=== PATIENT | female | born 1960 | race Caucasian/White ===

== ENCOUNTER 2018-05-02 21:14 | Outpatient (REF) | payer MEDICAID, SELFPAY ==
--- NOTE | 2018-05-02 15:00 | PAPFT_PTH ---
PATIENT: NADIRA NAVARRO LOC: [facility] U#:[id number] AGE/SX: 58/F ROOM: RE05/02/[address]: Kizzy Sanchez : 1960 BED: DIS: 05/02/2018 SPEC #: [id number] RECD: 05/05/18 12:41 STATUS: GENO REQ #: [id number] FRANCISCO: 05/02/18 15:[address]: Kizzy Sanchez DEPT: [facility] Cytology RECD BY: Joann Araiza ENTERED: 05/05/18 12:41 SP TYPE: PAPFT OTHR DR: Korey Hawkins Tissues: 1 - CX/ENDOCX FOR PAP SMEARS Procedures: PAP THIN PREP/[facility] Screening HPV DNA PROBE Comments: [id number]
[2018-05-02 22:44] LABS: TSH (W/Ref FT4) 2.07 uIU/mL (0.358-3.74)
[2018-05-02 23:01] LABS: Hemoglobin A1C 5.5 % (4.5-6.2)
[2018-05-05 09:33] LABS: Hepatitis C Ab w Rflx HCV PCR Negative (NEGAT)
== END 2018-05-02 21:34 ==
LOC: NCHCN 21:14
PROVIDERS: Visit Provider Family Medicine
DX: I10 Essential (primary) hypertension (principal); E03.9 Hypothyroidism, unspecified; R73.02 Impaired glucose tolerance (oral); Z12.4 Encounter for screening for malignant neoplasm of cervix; Z11.51 Encounter for screening for human papillomavirus (HPV)
CPT/HCPCS: 86803; 88142; 83036; 84443; 87624

== ENCOUNTER 2018-09-23 11:51 | Outpatient (REF) | payer MEDICAID, SELFPAY ==
[2018-09-23 21:49] LABS: Anion Gap 7.2 mmol/L (3-11); BUN 5 mg/dL (7-18); CO2 29.8 mmol/L (21.0-32.0); CREATININE 0.71 mg/dL (0.55-1.02); Calcium 7.6 mg/dL (8.5-10.1); Chloride 107 mmol/L (98-107); Glucose 98 mg/dL (70-100); Potassium 3.6 mmol/L (3.5-5.1); Sodium 144 mmol/L (136-145)
[2018-09-23 22:36] LABS: PROTEIN 10.9 mg/dL
[2018-09-23 23:06] LABS: COMMENT (LAB VIEW ONLY) 73.41 mg/dL; Prot/Crea Ur Ratio 0.14
== END 2018-09-23 12:11 ==
LOC: NCHCN 11:51
PROVIDERS: Visit Provider Family Medicine
DX: I10 Essential (primary) hypertension (principal); R60.0 Localized edema
CPT/HCPCS: 80048; 82565; 84156

== ENCOUNTER 2018-12-22 15:03 | Outpatient (REF) | payer MEDICAID, SELFPAY | END 2018-12-22 15:23 | LOC: NCHCN 15:03 | PROVIDERS: Visit Provider Family Medicine | DX: R60.9 Edema, unspecified (principal) | CPT/HCPCS: 80048 ==

== ENCOUNTER 2018-12-24 15:10 | Outpatient (REF) | payer MEDICAID, SELFPAY ==
[2018-12-24 22:42] LABS: Anion Gap 8.5 mmol/L (3-11); BUN 8 mg/dL (7-18); CO2 28.5 mmol/L (21.0-32.0); CREATININE 0.84 mg/dL (0.55-1.02); Calcium 8.3 mg/dL (8.5-10.1); Chloride 105 mmol/L (98-107); Glucose 83 mg/dL (70-100); Potassium 3.7 mmol/L (3.5-5.1); Sodium 142 mmol/L (136-145)
== END 2018-12-24 15:30 ==
LOC: NCHCN 15:10
PROVIDERS: Visit Provider Family Medicine
DX: R60.9 Edema, unspecified (principal)
CPT/HCPCS: 80048

== ENCOUNTER 2018-12-30 11:07 | Outpatient (REF) | payer MEDICAID, SELFPAY ==
[2018-12-30 23:04] LABS: COMMENT (LAB VIEW ONLY) 386.79 mg/dL; Microalb ug/mg Crea 3.5 ug/mg Cr
== END 2018-12-30 11:27 ==
LOC: NCHCN 11:07
PROVIDERS: Visit Provider Family Medicine
DX: I10 Essential (primary) hypertension (principal); R73.03 Prediabetes; K70.30 Alcoholic cirrhosis of liver without ascites; Z00.00 Encounter for general adult medical examination without abnormal findings
CPT/HCPCS: 82043; 82570

== ENCOUNTER 2019-01-06 15:29 | Outpatient (REF) | payer MEDICAID, SELFPAY ==
[2019-01-06 22:04] LABS: INR 1.8 (0.9-1.1); Prothrombin Time 18.4 sec (9.3-11.0)
[2019-01-06 23:05] LABS: Anion Gap 10.7 mmol/L (3-11); BUN 11 mg/dL (7-18); CO2 29.3 mmol/L (21.0-32.0); CREATININE 1.13 mg/dL (0.55-1.02); Calcium 8.1 mg/dL (8.5-10.1); Chloride 105 mmol/L (98-107); Estimated GFR 49.81 (mL/min/1.73m2); Glucose 95 mg/dL (70-100); Potassium 4.1 mmol/L (3.5-5.1); Sodium 145 mmol/L (136-145)
== END 2019-01-06 15:49 ==
LOC: NCHCN 15:29
PROVIDERS: Visit Provider Family Medicine
DX: K70.30 Alcoholic cirrhosis of liver without ascites (principal); R60.9 Edema, unspecified
CPT/HCPCS: 80048; 85610

== ENCOUNTER 2019-05-21 15:10 | Outpatient (CLI) | payer MEDICAID, SELFPAY ==
[2019-05-21 16:04] LABS: Ammonia 80 umol/L (11-32)
[2019-05-21 16:31] LABS: ALT 54 U/L (14-59); AST 104 U/L (15-37); Albumin 2.3 g/dL (3.4-5.0); Alkaline Phosphatase 139 U/L (46-116); Anion Gap 8.4 mmol/L (3-11); BUN 24 mg/dL (7-18); Bilirubin, Total 7.4 mg/dL (0.2-1.0); CO2 24.6 mmol/L (21.0-32.0); CREATININE 1.35 mg/dL (0.55-1.02); Calcium 9.3 mg/dL (8.5-10.1); Chloride 101 mmol/L (98-107); Estimated GFR 40.42 (mL/min/1.73m2); Glucose 116 mg/dL (74-106); Potassium 5.3 mmol/L (3.5-5.1); Sodium 134 mmol/L (136-145); TSH 0.61 uIU/mL (0.36-3.74); Total Protein 6.5 g/dL (6.4-8.2)
== END 2019-05-21 15:30 ==
PROVIDERS: Visit Provider Family Medicine
DX: K72.91 Hepatic failure, unspecified with coma (principal); E03.9 Hypothyroidism, unspecified
CPT/HCPCS: 36415; 80053; 82140; 84443

== ENCOUNTER 2019-06-26 14:30 | Outpatient (REF) | payer MEDICAID, SELFPAY ==
[2019-06-26 20:44] LABS: HCT 34.7 % (36.0-46.0); HGB 11.7 g/dL (12.0-15.5); Mean Corp. HGB Concentration 33.7 g/dL (32.0-36.0); Mean Corpuscular Hemoglobin 33.3 pg (27.0-33.0); Mean Corpuscular Volume 98.9 fL (80-95); Mean Platelet Volume 11.6 fL (8.0-11.0); Platelet Count 121 x1000/uL (130-400); RBC 3.51 m/cumm (4.00-5.20); RBC Distribution Width 16.7 % (11.7-14.6); White Blood Cell Count 5.44 k/cumm (4.4-10.8)
[2019-06-26 20:52] LABS: ALT 31 U/L (14-59); AST 58 U/L (15-37); Alkaline Phosphatase 140 U/L (46-116); Anion Gap 3.6 mmol/L (3-11); BUN 14 mg/dL (7-18); Bilirubin, Direct 2.84 mg/dL (0.00-0.20); Bilirubin, Total 4.5 mg/dL (0.2-1.0); CO2 30.4 mmol/L (21.0-32.0); CREATININE 0.82 mg/dL (0.55-1.02); Calcium 8.1 mg/dL (8.5-10.1); Chloride 105 mmol/L (98-107); Glucose 116 mg/dL (74-106); Potassium 5.3 mmol/L (3.5-5.1); Sodium 139 mmol/L (136-145); Total Protein 5.5 g/dL (6.4-8.2)
== END 2019-06-26 14:50 ==
LOC: NCHCN 14:30
PROVIDERS: Visit Provider Family Medicine
DX: R63.4 Abnormal weight loss (principal); K31.89 Other diseases of stomach and duodenum; K70.31 Alcoholic cirrhosis of liver with ascites; K72.91 Hepatic failure, unspecified with coma; R60.9 Edema, unspecified
CPT/HCPCS: 80053; 80076; 85027

== ENCOUNTER 2019-07-15 18:55 | Outpatient (REF) | payer MEDICAID, SELFPAY ==
[2019-07-15 21:48] LABS: Anion Gap 3.7 mmol/L (3-11); BUN 14 mg/dL (7-18); CO2 32.3 mmol/L (21.0-32.0); CREATININE 1.04 mg/dL (0.55-1.02); Chloride 102 mmol/L (98-107); Estimated GFR 54.62 (mL/min/1.73m2); Glucose 105 mg/dL (74-106); Potassium 4.3 mmol/L (3.5-5.1); Sodium 138 mmol/L (136-145)
== END 2019-07-15 19:15 ==
LOC: NCHCN 18:55
PROVIDERS: Visit Provider Family Medicine
DX: E87.5 Hyperkalemia (principal)
CPT/HCPCS: 80048

== ENCOUNTER 2019-07-31 22:38 | Outpatient (REF) | payer MEDICAID, SELFPAY ==
[2019-07-31 21:41] LABS: Anion Gap 6.4 mmol/L (3-11); BUN 10 mg/dL (7-18); CO2 27.6 mmol/L (21.0-32.0); CREATININE 0.88 mg/dL (0.55-1.02); Calcium 8.1 mg/dL (8.5-10.1); Chloride 94 mmol/L (98-107); Glucose 97 mg/dL (74-106); Potassium 4.8 mmol/L (3.5-5.1); Sodium 128 mmol/L (136-145)
== END 2019-07-31 22:58 ==
LOC: NCHCN 22:38
PROVIDERS: Visit Provider Family Medicine
DX: E87.5 Hyperkalemia (principal); R73.03 Prediabetes; K70.31 Alcoholic cirrhosis of liver with ascites
CPT/HCPCS: 80048

== ENCOUNTER 2019-08-05 16:53 | Outpatient (REF) | payer MEDICAID, SELFPAY ==
[2019-08-05 22:39] LABS: PROTEIN < 6.0 mg/dL
[2019-08-05 22:50] LABS: COMMENT (LAB VIEW ONLY) 69.69 mg/dL
== END 2019-08-05 17:13 ==
LOC: NCHCN 16:53
PROVIDERS: Visit Provider Family Medicine
DX: E87.5 Hyperkalemia (principal)
CPT/HCPCS: 82565; 84156